=== PATIENT | female | born 1985 | race Caucasian/White ===

== ENCOUNTER 2018-02-12 20:36 | Outpatient (CLI) | payer OTHER, MEDICAID ==
[2018-02-12 21:25] LABS: APPEARANCE,URINE TURBID; BILIRUBIN,URINE NEGATIVE (NEGATIVE); COLOR,URINE AMBER; GLUCOSE, URINE NEGATIVE (NEGATIVE); KETONES,URINE NEGATIVE (NEGATIVE); LEUKOCYTE ESTERASE,URINE LARGE (NEGATIVE); NITRITE,URINE NEGATIVE (NEGATIVE); PROTEIN,URINE 30 mg/dL (NEGATIVE); URINE SPECIFIC GRAVITY 1.028; UROBILINOGEN,URINE NEGATIVE mg/dL (<2.0)
[2018-02-12 21:34] LABS: URINE AMPHETAMINES SCREEN NEGATIVE; URINE BARBITURATES SCREEN NEGATIVE; URINE BENZODIAZEPINES SCREEN NEGATIVE; URINE COCAINE SCREEN NEGATIVE; URINE MARIJUANA (THC) SCREEN NEGATIVE; URINE METHADONE SCREEN NEGATIVE; URINE PHENCYCLIDINE SCREEN NEGATIVE
== END 2018-02-12 22:27 | disposition home or self-care (01) ==
LOC: LC 20:36
PROVIDERS: ATTEND Obstetrics & Gynecology
PROC: 4A1HXCZ Monitoring of Products of Conception, Cardiac Rate, External Approach (ICD-10-PCS; principal; 2018-02-12)
DX: O47.1 False labor at or after 37 completed weeks of gestation (principal); Z3A.39 39 weeks gestation of pregnancy
CPT/HCPCS: 59025; 80307; 81005

== ENCOUNTER 2018-02-19 21:58 | Inpatient (IN) | payer OTHER, MEDICAID ==
[2018-02-19] MEDS ORDERED: RINGERS SOLUTION,LACTATED 300 ML IV ONE (22:02)
[2018-02-19] MEDS ORDERED: RINGERS SOLUTION,LACTATED 1,000 ML IV ONE (22:02)
[2018-02-19] MEDS ORDERED: DINOPROSTONE 10 MG VAGINAL INSERT.SR PV PRN (22:02)
[2018-02-19] MEDS ORDERED: RINGERS SOLUTION,LACTATED 1,000 ML IV PRN (22:02)
[2018-02-19] MEDS ORDERED: DINOPROSTONE 10 MG VAGINAL INSERT.SR ONE (22:48)
[2018-02-19] MEDS: RINGERS SOLUTION,LACTATED 1,000 ML IV PRN (22:50)
[2018-02-19 22:51] LABS: ABSOLUTE EOSINOPHILS # (AUTO) 0.2 10^3/uL (0.0-0.6); ABSOLUTE MONOCYTES (AUTO) 0.9 10^3/uL (0.1-1.4); ABSOLUTE NEUT (AUTO) 6.2 10^3/uL (1.7-8.2); BASOPHILS % (AUTO) 0.3 % (0-2); HEMATOCRIT 31.6 % (36.0-47.0); HEMOGLOBIN 10.9 g/dL (12.0-15.5); LYMPHOCYTES % (AUTO) 21.6 % (13-45); MEAN CORPUSCULAR HEMOGLOBIN 27.7 pg (27.0-33.4); MEAN CORPUSCULAR HGB CONC 34.6 g/dL (32.0-36.0); MEAN CORPUSCULAR VOLUME 80 fl (80-97); MONOCYTES % (AUTO) 9.7 % (3-13); PLATELET COUNT 224 10^3/uL (150-450); RED BLOOD COUNT 3.94 10^6/uL (3.72-5.28); RED CELL DISTRIBUTION WIDTH 14.9 % (11.5-14.0); SEGMENTED NEUTROPHILS % (AUTO) 66.4 % (42-78); TOTAL CELLS COUNTED % (AUTO) 100 %; WHITE BLOOD COUNT 9.4 10^3/uL (4.0-10.5)
[2018-02-20] MEDS ORDERED: ZOLPIDEM TARTRATE 5 MG TABLET ONE (00:40)
--- NOTE | 2018-02-20 06:43 | Admission Physical ---
Datetime Report Generated by CPN: 02/20/2018 06:42 CURRENT ADMISSION Chief Complaint: Scheduled Induction of Labor Indication for Induction: Polyhydramnios Admit Impression : Term, Intrauterine ; No Active Labor; Intact Membranes; Induction of Labor Admit Plan: Admit to Unit; Initiate Labor Induction Protocol ALLERGIES Medication Allergies: No Medication Allergies: No Known Allergies (02/19/2018) Latex: No Latex Allergies Food Allergies: N/A Environmental Allergies: N/A OBSTETRICAL HISTORY EDC: 02/24/2018 00:00 : 3 Para: 0 Term: 0 : 0 SAB: 0 IAB: 1 Ectopic: 1 Livin Cesareans: 0 VBACs: 0 Multiple Births: 0 Gestational Diabetes: No Rh Sensitization: No Incompetent Cervix: No JAISON: No Infertility: No ART Treatment: No Uterine Anomaly: No IUGR: No Hx Previous C/S: No Macrosomia: No Hx Loss/Stillborn: No PIH: No Hx : No Placenta Previa/Abruption: No Depression/PP Depression: No PTL/PROM: No Post Hemorrhage: No Current Procedures: Ultrasound Obstetrical History Comments: G1- EAB 2014 G2- ectopic 2017 G3- current SEE RECORDS Alcohol: No Marijuana : No Cocaine: No Other Illicit Drugs: No Cigarettes: Never Smoker. [id number] MEDICAL HISTORY Diabetes: No Blood Transfusion: No Pulmonary Disease (Asthma, TB): Yes Breast Disease: No Hypertension: No Lay Out Former Surgery: No Heart Disease: No Hosp/Surgery: Yes Autoimmune Disorder: No Anesthetic Complications: No Kidney Disease: No Abnormal Pap Smear: Yes Neuro/Epilepsy: No Psychiatric Disorders: No Other Medical Diseases: No Hepatitis/Liver Disease: No Significant Family History: No Varicosities/Phlebitis: No Trauma/Violence : No Thyroid Dysfunction: No Medical History Comments: DDD, appendectomy, pin in R leg, asthma INFECTIOUS HISTORY Gonorrhea: No Genital Herpes: No Chlamydia: No Tuberculosis: No Syphilis: No Hepatitis: No HIV/AIDS Exposure: No Rash or Viral Illness: No HPV: No PHYSICAL EXAM General: Normal HEENT: Normal Neurologic: Normal Thyroid: Deferred Heart: Normal Lungs: Normal Breast: Deferred Back: Normal Abdomen: Normal Genitourinary Exam: Normal Extremities: Normal DTRs: Normal Pelvic Type: Adequate Vital Signs: Reviewed VAGINAL EXAM Dilatation: 0 Effacement: 50 Station: -3 Contraction Comments: none MEMBRANES Membranes: Intact FETUS A EGA: 39.3 Monitoring: External US FHR- Baseline: 135 Variability: Moderate 6-25bpm Accelerations: 15X15 Decelerations: None FHR Category: Category I Presentation: Vertex Admit Comment: 33yo (h/o ectopic and EAB) at 39+3eg presented last evening for IOL due to polyhydramnios (persistent). Last MVP/SDP was 03/20. EFW 8#8oz. LGSIL pap smear - needs colpo pp. Pt with h/o asthma - sees pulmonology. Pt with escessive weight gain as well. Cervidil placed last evening. GBS negative. Anticipate . Pelvis unproven. PLANS FOR LABOR AND DELIVERY Labor and Delivery: None Pain Management: Epidural Feeding Preference: Breast Benefit of Breast Feed Discussed: Yes Circumcision: N/A INFORMED CONSENT Informed Consent Obtained: Vaginal Delivery; Induction of Labor; Risks, Benefits and Alternatives Discussed Signature: with User ID: [email or web address]
[2018-02-20 07:50] LABS: AMORPHOUS SEDIMENT,URINE 3+ /HPF; APPEARANCE,URINE TURBID; BILIRUBIN,URINE NEGATIVE (NEGATIVE); CALCIUM OXALATE CRYSTALS,URINE MODERATE /HPF; COLOR,URINE YELLOW; GLUCOSE, URINE 50 mg/dL (NEGATIVE); KETONES,URINE 20 mg/dL (NEGATIVE); LEUKOCYTE ESTERASE,URINE LARGE (NEGATIVE); NITRITE,URINE NEGATIVE (NEGATIVE); PROTEIN,URINE 30 mg/dL (NEGATIVE); URINE SPECIFIC GRAVITY 1.031
[2018-02-20 08:26] LABS: URINE AMPHETAMINES SCREEN NEGATIVE; URINE BARBITURATES SCREEN NEGATIVE; URINE BENZODIAZEPINES SCREEN NEGATIVE; URINE COCAINE SCREEN NEGATIVE; URINE MARIJUANA (THC) SCREEN NEGATIVE; URINE METHADONE SCREEN NEGATIVE; URINE PHENCYCLIDINE SCREEN NEGATIVE
[2018-02-20] MEDS ORDERED: OXYTOCIN/NORMAL SALINE 20 UNIT/1,000 ML RTUINJ IV PRN (12:15)
[2018-02-20] MEDS ORDERED: OXYTOCIN/NORMAL SALINE 20 UNIT/1,000 ML RTUINJ ONE ×2 (12:25→23:34)
[2018-02-20] MEDS ORDERED: PROMETHAZINE HCL INJ 25 MG/1 ML VIAL IV ONE (13:46)
[2018-02-20] MEDS ORDERED: NALBUPHINE HCL INJ 10 MG/1 ML AMPULE ONE (13:46)
[2018-02-20] MEDS ORDERED: NALBUPHINE HCL INJ 10 MG/1 ML AMPULE INJ ONE (13:46)
[2018-02-20] MEDS ORDERED: PROMETHAZINE HCL INJ 25 MG/1 ML VIAL ONE (13:46)
[2018-02-20] MEDS ORDERED: LIDOCAINE 1% INJ-PF (10 MG/ML) 30 ML SDV ONE (23:33)
[2018-02-20] MEDS ORDERED: MISOPROSTOL 0.2 MG TABLET ONE (23:33)
[2018-02-20] MEDS ORDERED: BUPIVACAINE HCL 0.25 % INJ/PF (2.5 MG/1 ML) 30 ML VIAL ONE (23:34)
[2018-02-20] MEDS ORDERED: FENTANYL/BUPIVACAINE/NS/PF 300 MCG/150 ML RTUINJ EPI ONE (23:34)
[2018-02-20] MEDS ORDERED: EPHEDRINE SULFATE INJ 50 MG/1 ML AMPULE ONE (23:34)
[2018-02-21] MEDS ORDERED: LIDOCAINE 1.5%/EPINEPHRINE INJ-PF 30 ML SDV ONE (00:31)
[2018-02-21] MEDS ORDERED: ACETAMINOPHEN 325 MG TABLET ONE ×2 (05:46→10:09)
--- NOTE | 2018-02-21 09:14 | L&D Progress Notes ---
PROGRESS NOTES Datetime Report Generated by CPN: 02/21/2018 09:13 PROGRESS NOTE Informed Consent Obtained: Vaginal Delivery; Induction of Labor; Risks, Benefits and Alternatives Discussed Comment: Having occasional late decelerations, moderate variability, repositioned, IV bolus,Pitocin off,, uc's q 2 1/2 min x 50-60 sec, does not feel uc's, comfortable with epidural, Dr. Fontanez on unit, aware of lates and lates resolved with intrauterine resuscitation Continue to monitorclosely VAGINAL EXAM Dilatation: 0 Effacement: 50 Station: -3 Contractions: none MEMBRANES Membranes: Intact FETUS A Presentation: Vertex SIGNATURE SIGNATURE: [id number] SIGNATURE: ,[id number];,[id number] SIGNATURE: ,[id number] Assignment: Silver Fontanez MD Signature: with User ID: [email or web address] : with User ID: [email or web address]
--- NOTE | 2018-02-21 10:04 | L&D Progress Notes ---
PROGRESS NOTES Datetime Report Generated by CPN: 02/21/2018 10:04 PROGRESS NOTE Impression: Reassuring Heart Rate Plan: Continue Present Management; Induction Informed Consent Obtained: Vaginal Delivery Vital Signs : Reviewed; Within Normal Limits Comment: Cat 1 strip, irregulsr UC's, will restart Pitocin, monitor closely FETUS A Monitoring: External US Decelerations: None FETUS C SIGNATURE: [id number];[id number];[id number] Assignment: Silver Fontanez MD Signature: with User ID: [email or web address] : with User ID: [email or web address]
[2018-02-21] MEDS ORDERED: CEFAZOLIN 1 GM/D5W RTU 2 GM/100 ML RTUPB IV ONE (10:09)
[2018-02-21] MEDS ORDERED: CITRIC ACID/SODIUM CITRATE ORAL SOLN 15 ML UDCUP ONE (10:09)
--- NOTE | 2018-02-21 10:11 | L&D Progress Notes ---
PROGRESS NOTES Datetime Report Generated by CPN: 02/21/2018 10:10 PROGRESS NOTE Comment: 99.2 temp, VE = closed, out of pelvis, vomiting, hold Pitocin, wait for Dr. Fontanez to evaluate, , uc's q 4 min, Cat 1 strip FETUS C SIGNATURE: [id number];[id number];[id number] Assignment: Silver Fontanez MD Signature: with User ID: [email or web address] : with User ID: [email or web address]
[2018-02-21] MEDS ORDERED: ONDANSETRON HCL INJ/PF 4 MG/2 ML SDV ONE (10:14)
[2018-02-21] MEDS ORDERED: OXYTOCIN 10 UNIT/ML VIAL ONE (10:22)
[2018-02-21] MEDS ORDERED: MIDAZOLAM 2 MG/2 ML INJ ONE (10:23)
[2018-02-21] MEDS ORDERED: EPHEDRINE SULFATE INJ 50 MG/1 ML AMPULE ONE (10:23)
[2018-02-21] MEDS ORDERED: LIDOCAINE 2% INJ-PF (20 MG/ML) 10 ML AMPUL ONE (10:23)
[2018-02-21] MEDS ORDERED: FENTANYL CITRATE INJ/PF 100 MCG/2 ML AMPUL ONE (10:24)
[2018-02-21] MEDS ORDERED: MORPHINE SULFATE 10 MG/ML INJ ONE (10:24)
[2018-02-21] MEDS ORDERED: ONDANSETRON HCL INJ/PF 4 MG/2 ML SDV IV ONE ×2 (10:45)
[2018-02-21] MEDS ORDERED: ACETAMINOPHEN 325 MG TABLET PO ONE (10:45)
[2018-02-21] MEDS ORDERED: MORPHINE SULFATE 10 MG/ML INJ IV PRN (11:09)
[2018-02-21] MEDS ORDERED: OXYCODONE-ACETAMINOPHEN 5-325 MG TABLET PO PRN ×2 (11:09)
[2018-02-21] MEDS ORDERED: DIPHENHYDRAMINE HCL 50 MG/ML VIAL IV PRN (11:09)
[2018-02-21] MEDS ORDERED: PROMETHAZINE HCL INJ 25 MG/1 ML VIAL IV PRN ×3 (11:09→11:22)
[2018-02-21] MEDS ORDERED: FENTANYL CITRATE INJ/PF 100 MCG/2 ML AMPUL IV PRN ×3 (11:09)
[2018-02-21] MEDS ORDERED: MEPERIDINE HCL/PF INJ 25 MG/1 ML DISP.SYRIN IV PRN (11:09)
[2018-02-21] MEDS ORDERED: DIPH/PERTUSS(ACELL)/TETANUS VAC/PF 0.5 ML SYR (>=10YO) IM PRN (11:22)
[2018-02-21] MEDS ORDERED: MEASLES,MUMPS&RUBELLA VACC/PF 0.5 ML VIAL SUBCUT PRN (11:22)
[2018-02-21] MEDS ORDERED: MORPHINE SULFATE 10 MG/ML INJ IM PRN (11:22)
[2018-02-21] MEDS ORDERED: OXYTOCIN/NORMAL SALINE 20 UNIT/1,000 ML RTUINJ IV PRN (11:22)
[2018-02-21] MEDS ORDERED: ACETAMINOPHEN 325 MG TABLET PO PRN (11:22)
[2018-02-21] MEDS ORDERED: OXYTOCIN/NORMAL SALINE 20 UNIT/1,000 ML RTUINJ ONE (11:25)
--- NOTE | 2018-02-21 11:25 | OPERATIVE REPORT E ---
Operative Report NAME: MATT MIXON : 1985 AGE: 33Y DATE OF SURGERY: 02/21/2018 ROOM: LR200 PREOPERATIVE DIAGNOSIS: IUP at term with failure to descend. POSTOPERATIVE DIAGNOSIS: IUP at term with failure to descend. PROCEDURE: Primary low-transverse C section, delivery of a viable female, 8 and 9 Apgars. SURGEON: Moe JACKSON M.D. ESTIMATED BLOOD LOSS: Less than 1000 mL. ANESTHESIA: Epidural TISSUE REMOVED OR ALTERED: Placenta. DESCRIPTION OF PROCEDURE: The patient was placed in a supine position, roll right side, prepped and draped in a sterile fashion. A Pfannenstiel incision was made down through the fascia. The fascia was sharply and bluntly divided. The rectus muscle was bluntly and sharply divided. Parietal peritoneum was entered with blunt dissection. Uterus nicked in midline, standard bilaterally. Infant was then delivered through the uterine and abdominal incision. Nose and mouth were suctioned with bulb syringe. Cord was clamped, infant was passed from table. Placenta was manually extracted. The uterus was closed in 2 layers using #1 Vicryl, first a running stitch and a second Limbert stitch imbricating the first layer. There were 2 areas of bleeding noted in the incision, controlled with [id number] sutures of #1 Vicryl. The fascia was then closed with 0-Vicryl and the skin was closed with subcutaneous absorbable oriana. Her urine remained clear throughout the procedure. She was taken to the recovery room in good condition. DICTATING PHYSICIAN: Moe JACKSON M.D. [id number] Y#: [id number] ID: [id number] JOB#: [id number] ACCT: [id number] cc:Moe JACKSON M.D. >
[2018-02-21] MEDS ORDERED: KETOROLAC TROMETHAMINE INJ/PF 30 MG/1 ML SDV ONE (11:50)
[2018-02-21] MEDS ORDERED: ACETAMINOPHEN 1,000 MG/100 ML RTUPB IV ONE ×2 (11:50→13:00)
[2018-02-21] MEDS: MORPHINE SULFATE 10 MG/ML INJ IV PRN ×2 (12:45→20:33)
[2018-02-21] MEDS: DOCUSATE SODIUM 100 MG CAPSULE PO SCH (17:28)
[2018-02-21] MEDS: KETOROLAC TROMETHAMINE INJ/PF 30 MG/1 ML SDV IV SCH (17:29)
[2018-02-21] MEDS: OXYCODONE-ACETAMINOPHEN 5-325 MG TABLET PO PRN ×2 (17:29→23:39)
[2018-02-21] MEDS: RINGERS SOLUTION,LACTATED 1,000 ML IV PRN (23:44)
[2018-02-22] MEDS: KETOROLAC TROMETHAMINE INJ/PF 30 MG/1 ML SDV IV SCH ×2 (01:14→09:14)
[2018-02-22] MEDS: OXYCODONE-ACETAMINOPHEN 5-325 MG TABLET PO PRN ×4 (04:14→21:30)
[2018-02-22 07:33] LABS: HEMATOCRIT 25.6 % (36.0-47.0); MEAN CORPUSCULAR HEMOGLOBIN 27.6 pg (27.0-33.4); MEAN CORPUSCULAR HGB CONC 34.4 g/dL (32.0-36.0); MEAN CORPUSCULAR VOLUME 80 fl (80-97); PLATELET COUNT 181 10^3/uL (150-450); RED BLOOD COUNT 3.19 10^6/uL (3.72-5.28); RED CELL DISTRIBUTION WIDTH 14.7 % (11.5-14.0); WHITE BLOOD COUNT 14.1 10^3/uL (4.0-10.5)
[2018-02-22 07:35] LABS: HEMOGLOBIN 8.8 g/dL (12.0-15.5)
[2018-02-22] MEDS: PRENATAL VITAMIN W DHA CAPSULE PO SCH (09:14)
[2018-02-22] MEDS: DOCUSATE SODIUM 100 MG CAPSULE PO SCH ×2 (09:14→18:11)
[2018-02-22] MEDS ORDERED: PNV PO SCH (10:00)
[2018-02-22] MEDS ORDERED: DSS PO SCH (10:00)
[2018-02-22] MEDS ORDERED: [UNRECOGNIZED DRUG - OTHER] PO SCH (10:00)
[2018-02-22] MEDS ORDERED: FOLATE PO SCH (10:00)
[2018-02-22] MEDS ORDERED: IRON PO SCH (10:00)
[2018-02-22] MEDS ORDERED: DHA PO SCH (10:00)
[2018-02-22] MEDS: ASCORBIC ACID 500 MG TABLET PO SCH ×2 (10:56→18:11)
[2018-02-22] MEDS: FERROUS SULFATE 325 MG TABLET PO SCH ×3 (10:56→18:11)
--- NOTE | 2018-02-22 11:35 | PDOC PROGRESS REPORT ---
Subjective-OB Progress Note for:: 02/22/18 Subjective: Pt doing well, sore but pain is controlled. She reports reg diet, voiding well and no heavy bleeding. Physical Exam (OB) Vital Signs: Temp Pulse Resp BP Pulse Ox 98.7 F 83 18 108/56 L 96 02/22/18 08:00 02/22/18 08:00 02/22/18 08:00 02/22/18 08:00 02/22/18 08:00 Intake & Output 02/21/18 02/22/18 02/23/18 06:59 06:59 06:59 Intake Total 1446 Output Total 1525 Balance -79 - Dressing Removed: No Incision: Dressing Closure Type: Sutures - Abdomen Description: Tender, Soft Hernia Present: No Fundal Description: Firm, Midline Fundal Height: u/u - u/2 Objective-Diagnostic Laboratory: 02/22/18 06:49 02/22/18 06:49 WBC 14.1 H RBC 3.19 L Hgb 8.8 L D Hct 25.6 L MCV 80 MCH 27.6 MCHC 34.4 RDW 14.7 H Plt Count 181 Assessment and Plan(PN) - Assessment and Plan (1) delivery delivered Is this a current diagnosis for this admission?: Yes - Time Spent with Patient Time with patient: Less than 15 minutes Medications reviewed and adjusted accordingly: Yes - Disposition Anticipated Discharge: Home Within: within 24 hours
[2018-02-22] MEDS: IBUPROFEN 800 MG TABLET PO SCH (17:19)
[2018-02-22] MEDS: AMPICILLIN SODIUM/SULBACTAM NA 3 GM in NORMAL SALINE 100 ML IV SCH (18:10)
[2018-02-23] MEDS: IBUPROFEN 800 MG TABLET PO SCH ×3 (01:39→18:13)
[2018-02-23] MEDS: AMPICILLIN SODIUM/SULBACTAM NA 3 GM in NORMAL SALINE 100 ML IV SCH ×3 (01:40→18:14)
[2018-02-23] MEDS: OXYCODONE-ACETAMINOPHEN 5-325 MG TABLET PO PRN ×3 (06:00→20:43)
--- NOTE | 2018-02-23 07:45 | Delivery Summary ---
Del Sum A-C Datetime Report Generated by CPN: 02/23/2018 07:45 DELIVERY PERSONNEL DELIVERY PERSONNEL: [id number] Delivery Doctor:: Silver Fontanez MD Anesthesiologist:: Shannon Banuelos MD TICK INSPECTOR:: Na Lewis TICK INSPECTOR Labor and Delivery Nurse:: Elly Cano RN Oil Dipper:: Elly Cano RN Neonatal Nurse Practitioner:: PHYLLIS Arevalo Nursery Nurse:: Joann Thomas RN Guest Attendant/RISK MGR: ST Jennifer Guest Attendant/RISK MGR: Ijeoma MATERNAL INFORMATION Delivery Anesthesia: Epidural Meds After Delivery Comment: See Anesthesia record Maternal Complications: None LABOR SUMMARY EDC: 02/24/2018 00:00 No. Babies in Womb: 1 Attempted: No Labor Anesthesia: Epidural LABOR INFORMATION Reason for Induction: Polyhydramnios; Other Reason for Induction- Other: Polyhydramnious Cervical Ripening Agents: Cervidil Oxytocin: Induction Group B Beta Strep: negative Steroids Given: None Reason Steroids Not Administered: Not Applicable MEMBRANES Membranes Rupture Method: Artificial Rupture of Membranes: 02/20/2018 22:21 Length of Rupture (hr): 12.55 Amniotic Fluid Color: Clear Amniotic Fluid Amount: Moderate Amniotic Fluid Odor: Normal STAGES OF LABOR Stage 3 hr: 0 Stage 3 min: 1 VAGINAL DELIVERY Episiotomy: None Laceration #1: None Laceration Extension #1: N/A Sponge Count Correct: N/A CSECTION DELIVERY Primary Indication: Arrest of Descent CSection Urgency: Non-Scheduled CSection Incidence: Primary Labor: Labor CSection Incision: Lower Uterine Transverse BABY A INFORMATION Infant Delivery Date/Time: 02/21/2018 10:54 Method of Delivery: Born in Route : No : N/A Forceps: N/A Vacuum Extraction: N/A Shoulder Dystocia : No PRESENTATION/POSITION BABY A Presentation: Cephalic Cephalic Presentation: Vertex Vertex Position: n/a Breech Presentation: N/A PLACENTA INFORMATION BABY A Placenta Delivery Time : 02/21/2018 10:55 Placenta Method of Delivery: Expressed Placenta Status: Delivered SCORES BABY A Heart Rate 1 min: >100 bpm Resp Effort 1 min: Good Cry Reflex Irritability 1 min: Cough or Sneeze or Pulls Away Muscle Tone 1 min: Active Motion Color 1 min: Blue/Pale Resuscitation Effort 1 min: Tactile Stimulation SCORE 1 MIN: 8 Heart Rate 5 min: >100 bpm Resp Effort 5 min: Good Cry Reflex Irritability 5 min: Cough or Sneeze or Pulls Away Muscle Tone 5 min: Active Motion Color 5 min: Body [place], Extremities Blue Resuscitation Effort 5 min: Tactile Stimulation SCORE 5 MIN: 9 INFANT INFORMATION BABY A Gestational Age at Delivery: 39.4 Gestational Status: Full Term- 39- 40.6 Weeks Outcome : Liveborn Condition : Stable Sex: Female IDENTIFICATION BABY A Verification Date/Time: 02/21/2018 11:00 ID Band Number: [id number] Mother's Name Verified: Yes Infant CORD INFORMATION BABY A No. Cord Vessels: 3 Nuchal Cord : N/A Cord Blood Taken: Yes-For Eval (Mom's Blood Type - or O+) ASSESSMENT BABY A Complications: None Physical Findings at Delivery: Within Normal Limits Infant Respirations: Appears Normal Skin to Skin: Yes Transferred To: Nursery BABY B INFORMATION : N/A SIGNATURES Signature: with User ID: [email or web address]
--- NOTE | 2018-02-23 10:08 | PDOC PROGRESS REPORT ---
Subjective-OB Progress Note for:: 02/23/18 Subjective: states she is feeling better, reports well, pain controlled with current meds, +passing gas, bleeding slowing. denies needs. discussed cont. abx until afebrile x 24 hours, pt agrees with plan Physical Exam (OB) Vital Signs: Temp Pulse Resp BP Pulse Ox 98.4 F 72 16 100/54 L 97 02/23/18 08:22 02/23/18 08:22 02/23/18 08:22 02/23/18 08:22 02/23/18 08:22 Intake & Output 02/22/18 02/23/18 02/24/18 06:59 06:59 06:59 Intake Total 1446 1050 Output Total 1525 Balance -79 1050 - Incision: Open - no s/s infection, Well Approximated Closure Type: Surgical Glue - Abdomen Description: Tender, Soft, Round Hernia Present: No Fundal Description: Firm, Midline Fundal Height: u/u - u/2 - Extremities Lower extremities: Audrey's sign - neg Ankle: Normal, Nontender Objective-Diagnostic Laboratory: 02/22/18 06:49 Assessment and Plan(PN) - Assessment and Plan (1) Fever Qualifiers: Fever type: fever of unknown origin following delivery Qualified Code(s): O86.4 - Pyrexia of unknown origin following delivery Is this a current diagnosis for this admission?: Yes (2) delivery delivered Is this a current diagnosis for this admission?: Yes - Time Spent with Patient Time with patient: Less than 15 minutes Medications reviewed and adjusted accordingly: Yes - Disposition Anticipated Discharge: Home Within: within 24 hours
[2018-02-23] MEDS: FERROUS SULFATE 325 MG TABLET PO SCH ×3 (10:27→18:13)
[2018-02-23] MEDS: ASCORBIC ACID 500 MG TABLET PO SCH ×2 (10:27→18:13)
[2018-02-23] MEDS: PRENATAL VITAMIN W DHA CAPSULE PO SCH (10:27)
[2018-02-23] MEDS: DOCUSATE SODIUM 100 MG CAPSULE PO SCH ×2 (10:28→18:13)
[2018-02-23] MEDS: SIMETHICONE 80 MG TAB.CHEW PO PRN ×2 (13:47→20:46)
[2018-02-23] MEDS ORDERED: ALBUTEROL SULFATE HFA (90 MCG/PUFF) 200 PUFF/8.5 GM MDI IH PRN (21:00)
[2018-02-24] MEDS: AMPICILLIN SODIUM/SULBACTAM NA 3 GM in NORMAL SALINE 100 ML IV SCH ×2 (01:10→11:02)
[2018-02-24] MEDS: IBUPROFEN 800 MG TABLET PO SCH ×2 (01:11→11:00)
[2018-02-24] MEDS: OXYCODONE-ACETAMINOPHEN 5-325 MG TABLET PO PRN ×2 (05:54→11:01)
[2018-02-24 06:06] LABS: ABSOLUTE EOSINOPHILS # (AUTO) 0.3 10^3/uL (0.0-0.6); ABSOLUTE LYMPHOCYTES (AUTO) 1.8 10^3/uL (0.5-4.7); ABSOLUTE NEUT (AUTO) 4.9 10^3/uL (1.7-8.2); BASOPHILS % (AUTO) 0.5 % (0-2); EOSINOPHILS % (AUTO) 3.7 % (0-6); HEMATOCRIT 26.4 % (36.0-47.0); LYMPHOCYTES % (AUTO) 22.5 % (13-45); MEAN CORPUSCULAR HEMOGLOBIN 27.4 pg (27.0-33.4); MEAN CORPUSCULAR HGB CONC 34.1 g/dL (32.0-36.0); MEAN CORPUSCULAR VOLUME 80 fl (80-97); PLATELET COUNT 241 10^3/uL (150-450); RED BLOOD COUNT 3.28 10^6/uL (3.72-5.28); RED CELL DISTRIBUTION WIDTH 14.9 % (11.5-14.0); SEGMENTED NEUTROPHILS % (AUTO) 61.3 % (42-78); TOTAL CELLS COUNTED % (AUTO) 100 %
--- NOTE | 2018-02-24 09:51 | PDOC DISCHARGE SUMMARY ---
Final Diagnosis Discharge Date: 02/24/18 - Final Diagnosis (1) delivery delivered Is this a current diagnosis for this admission?: Yes Discharge Data - Discharge Medication Home Medications: Albuterol Sulfate [Proair HFA] 2 inh IN Q4H PRN 02/12/18 Budesonide/Formoterol Fumarate [Symbicort 160-4.5 Mcg Inhaler] 2 inh IN DAILY Pnv 102/Iron/Folate 1/Dss/Dha [Vitafol Fe+ Docusate Combo Pck] 1 tab PO DAILY Reason(s) for Admission: Induction of Labor, Obstetric Complications Procedures: NST, Management of Obstetric Complications Intrapartum Procedure(s): : Low Cervical, Transverse Intrapartum Procedure Note: Failure to Descend - Diagnosis Test Laboratory: Temp Pulse Resp BP Pulse Ox 98.4 F 70 18 129/73 H 100 02/24/18 07:35 02/24/18 07:35 02/24/18 07:35 02/24/18 07:35 02/24/18 07:35 02/19/18 02/19/18 02/22/18 22:05 22:39 06:49 RBC 3.94 3.19 L Hgb 10.9 L 8.8 L D Hct 31.6 L 25.6 L Urine Opiates Screen NEGATIVE 02/24/18 05:40 RBC 3.28 L Hgb 9.0 L Hct 26.4 L Urine Opiates Screen - Discharge information/Instructions Discharge Activity: Balance Activity w/Rest, No Lifting Over 10 Pounds, No Lifting/Push/Pulling, Pelvic Rest, No tub bath Discharge Diet: Regular Disposition: HOME, SELF-CARE Follow up with: [facility] in: 1, Weeks
[2018-02-24] MEDS ORDERED: BUDESONIDE/FORMOTEROL 160-4.5 MCG 60 PUFF/6 GM MDI IH SCH (10:00)
[2018-02-24] MEDS: PRENATAL VITAMIN W DHA CAPSULE PO SCH (10:59)
[2018-02-24] MEDS: DOCUSATE SODIUM 100 MG CAPSULE PO SCH (10:59)
[2018-02-24] MEDS: ASCORBIC ACID 500 MG TABLET PO SCH (10:59)
[2018-02-24] MEDS: FERROUS SULFATE 325 MG TABLET PO SCH ×2 (11:00→14:03)
[2018-02-24 11:36] VITALS: BP 116/61
== END 2018-02-24 15:43 | disposition home or self-care (01) | DRG 765 ==
LOC: LR 21:58 → 2N 02-21 12:35
PROVIDERS: ADMIT Obstetrics & Gynecology Gynecology; ATTEND Obstetrics & Gynecology Gynecology
PROC: 4A1HXCZ Monitoring of Products of Conception, Cardiac Rate, External Approach (ICD-10-PCS; 2018-02-19)
PROC: 10D00Z1 Extraction of Products of Conception, Low, Open Approach (ICD-10-PCS; principal; 2018-02-21)
DX: O62.1 Secondary uterine inertia (principal); O86.4 Pyrexia of unknown origin following delivery; O40.3XX0 Polyhydramnios, third trimester, not applicable or unspecified; O99.52 Diseases of the respiratory system complicating childbirth; J45.909 Unspecified asthma, uncomplicated; O26.03 Excessive weight gain in pregnancy, third trimester; O76 Abnormality in fetal heart rate and rhythm complicating labor and delivery; Z3A.39 39 weeks gestation of pregnancy; Z37.0 Single live birth
CPT/HCPCS: 1961; 36415; 80307; 81001; 85025; 85027; 86592; 86850; 86900; 86901; 94799; J0131; J0295; J0690; J1885; J2250; J2270; J2300; J2405; J2550; J2590; J3010; J3490; J7120

== ENCOUNTER 2018-02-26 20:54 | Outpatient (CLI) | payer OTHER, MEDICAID ==
[2018-02-26 22:19] LABS: APPEARANCE,URINE CLEAR; BILIRUBIN,URINE NEGATIVE (NEGATIVE); COLOR,URINE STRAW; GLUCOSE, URINE NEGATIVE (NEGATIVE); KETONES,URINE NEGATIVE (NEGATIVE); LEUKOCYTE ESTERASE,URINE NEGATIVE (NEGATIVE); NITRITE,URINE NEGATIVE (NEGATIVE); PROTEIN,URINE NEGATIVE (NEGATIVE); URINE SPECIFIC GRAVITY 1.006; UROBILINOGEN,URINE NEGATIVE mg/dL (<2.0)
[2018-02-26 22:32] LABS: ABSOLUTE EOSINOPHILS # (AUTO) 0.3 10^3/uL (0.0-0.6); ABSOLUTE MONOCYTES (AUTO) 0.7 10^3/uL (0.1-1.4); ABSOLUTE NEUT (AUTO) 7.6 10^3/uL (1.7-8.2); BASOPHILS % (AUTO) 0.4 % (0-2); EOSINOPHILS % (AUTO) 2.5 % (0-6); HEMATOCRIT 28.9 % (36.0-47.0); HEMOGLOBIN 9.8 g/dL (12.0-15.5); LYMPHOCYTES % (AUTO) 18.6 % (13-45); MEAN CORPUSCULAR HGB CONC 33.7 g/dL (32.0-36.0); MEAN CORPUSCULAR VOLUME 80 fl (80-97); MONOCYTES % (AUTO) 6.5 % (3-13); PLATELET COUNT 356 10^3/uL (150-450); RED BLOOD COUNT 3.61 10^6/uL (3.72-5.28); RED CELL DISTRIBUTION WIDTH 14.9 % (11.5-14.0); TOTAL CELLS COUNTED % (AUTO) 100 %; WHITE BLOOD COUNT 10.6 10^3/uL (4.0-10.5)
[2018-02-26 22:41] LABS: ALANINE AMINOTRANSFERASE 42 U/L (9-52); ALKALINE PHOSPHATASE 211 U/L (38-126); ANION GAP 8 (5-19); ASPARTATE AMINO TRANSFERASE 36 U/L (14-36); BILIRUBIN,DIRECT 0.4 mg/dL (0.0-0.4); BILIRUBIN,TOTAL 0.5 mg/dL (0.2-1.3); BLOOD UREA NITROGEN 15 mg/dL (7-20); CALCIUM 8.8 mg/dL (8.4-10.2); CARBON DIOXIDE 29 mmol/L (22-30); CHLORIDE 104 mmol/L (98-107); GLUCOSE 75 mg/dL (75-110); POTASSIUM 4.6 mmol/L (3.6-5.0); SODIUM 140.6 mmol/L (137-145); TOTAL PROTEIN 5.8 g/dL (6.3-8.2); URIC ACID 6.3 mg/dL (2.5-6.2)
[2018-02-26 23:08] LABS: UR PRO/CREAT RATIO RESULT 0.5 mg/mg (0.0-0.2); URINE CREATININE 22.7 mg/dL (16-327); URINE PROTEIN 11.1 mg/dL (<12)
[2018-02-26] MEDS ORDERED: BISACODYL 10 MG SUPP.RECT PR ONE ×2 (23:13→23:15)
== END 2018-02-27 00:17 | disposition home or self-care (01) ==
LOC: EDSTATUS 21:22 → LC 21:24
PROVIDERS: ATTEND Obstetrics & Gynecology Gynecology
DX: O90.89 Other complications of the puerperium, not elsewhere classified (principal); K59.00 Constipation, unspecified
CPT/HCPCS: 36415; 80053; 81001; 82570; 83615; 84156; 84550; 85025

== ENCOUNTER 2018-07-21 14:52 | Emergency (ER) | payer MEDICAID, OTHER ==
[2018-07-21 15:10] VITALS: BP 121/62
[2018-07-21] MEDS ORDERED: CEFTRIAXONE INJ 1000 MG VIAL IM ONE (15:24)
[2018-07-21] MEDS ORDERED: LIDOCAINE 1% INJ-PF (10 MG/ML) 30 ML SDV INJ ONE (15:24)
[2018-07-21] MEDS ORDERED: BUPIVACAINE HCL 0.5 % INJ/PF 30 ML SDV INJ ONE (15:24)
[2018-07-21] MEDS ORDERED: IBUPROFEN 800 MG TABLET PO ONE (15:25)
--- NOTE | 2018-07-21 15:31 | ER Document Report ---
HPI - HPI Patient complains to provider of: Finger infection Time Seen by Provider: 07/21/18 15:12 Onset: Other - 2 days Onset/Duration: Worse Quality of pain: Achy Pain Level: 5 Context: Patient states that she received a manicure about a month ago and had some general soreness to the right third finger. Patient states that over the past 2 days the area has become tender red and swollen. Patient did see her primary doctor for this recently and was placed on Augmentin. Patient denies any improvement of her symptoms. Patient states she has had about 3 doses of the antibiotic. Associated Symptoms: denies: Fever, Nausea Exacerbated by: Movement Relieved by: Denies Similar symptoms previously: No Recently seen / treated by doctor: Yes - ROS ROS below otherwise negative: Yes Systems Reviewed and Negative: Yes All other systems reviewed and negative - CONSTITUTIONAL Constitutional: DENIES: Fever, Chills - MUSCULOSKELETAL Musculoskeletal: REPORTS: Extremity pain - right middle finger, Swelling - DERM Skin Color: Erythema Past Medical History - General Information source: Patient - Social History Smoking Status: Current Every Day Smoker Frequency of alcohol use: None Drug Abuse: None Occupation: Teaching Family History: Reviewed & Not Pertinent Patient has suicidal ideation: No Patient has homicidal ideation: No Pulmonary Medical History: Reports: Hx Asthma Renal/ Medical History: Denies: Hx Peritoneal Dialysis Past Surgical History: Reports: Hx Appendectomy, Hx Section, Hx Orthopedic Surgery - right leg Vertical Provider Document - CONSTITUTIONAL Agree With Documented VS: Yes Exam Limitations: No Limitations General Appearance: WD/WN, No Apparent Distress - INFECTION CONTROL TRAVEL OUTSIDE OF THE [place] IN LAST 30 DAYS: No - HEENT HEENT: Atraumatic, Normocephalic - NECK Neck: Normal Inspection - RESPIRATORY Respiratory: No Respiratory Distress - CARDIOVASCULAR Pulses: Normal: Radial - BACK Back: Normal Inspection - MUSCULOSKELETAL/EXTREMETIES Musculoskeletal/Extremeties: MAEW - NEURO Level of Consciousness: Awake, Alert, Appropriate Motor/Sensory: No Motor Deficit - DERM Integumentary: Warm, Dry Notes: Patient with paronychia involving the nail margin of the right third finger. Patient does have some subtle swelling to the palmar surface, no fluctuance Course - Re-evaluation Re-evalutation: 07/21/18 15:56 Dr. Hopson to bedside for examination. After digital block was performed Dr. Hopson used an 18-gauge needle for incision and drainage of paronychia, moderate amount of purulent drainage removed that was then cultured. - Vital Signs Vital signs: Temp Pulse Resp BP Pulse Ox 99.0 F 72 14 121/62 98 07/21/18 15:09 07/21/18 15:09 07/21/18 15:09 07/21/18 15:09 07/21/18 15:09 Procedures - Incision and Drainage Right Finger 3rd digit Type: Simple Anesthetic type: 0.5% Bupivacaine I&D procedure: Shurclens applied Incision Method: Incision made with needle Discharge - Discharge Clinical Impression: Paronychia, Encounter for incision and drainage procedure Condition: Stable Disposition: HOME, SELF-CARE Instructions: Augmentin ([facility]), Oral Narcotic Medication ([facility]), Paronychia ([facility]) , Rocephin ([facility]) Additional Instructions: Return immediately for any new or worsening symptoms Followup with your primary care provider, call tomorrow to make a followup appointment Continue to take your antibiotic as previously prescribed Prescriptions: Hydrocodone/Acetaminophen [Forgan 5-325 mg Tablet] 1 tab PO Q6 PRN #8 tablet PRN Reason: Ibuprofen [Motrin 600 Mg Tablet] 600 mg PO Q6H PRN #20 tablet PRN Reason: for pain Referrals: ROYER MORA DO [ACTIVE STAFF] - Follow up as needed
== END 2018-07-21 16:15 | disposition home or self-care (01) ==
LOC: ER 14:52
PROC: 0H9QXZZ Drainage of Finger Nail, External Approach (ICD-10-PCS; principal; 2018-07-21)
DX: L03.011 Cellulitis of right finger (principal); M79.644 Pain in right finger(s); M79.89 Other specified soft tissue disorders; J45.909 Unspecified asthma, uncomplicated; F17.200 Nicotine dependence, unspecified, uncomplicated
CPT/HCPCS: 99283; 96372; 87070; 87205; 10060; J3490 ×3; J0696

== ENCOUNTER 2018-07-22 11:40 | Emergency (ER) | payer MEDICAID ==
[2018-07-22 11:48] VITALS: BP 115/76
--- NOTE | 2018-07-22 12:21 | ER Document Report ---
ED Hand/Wrist Injury - General Chief Complaint: Finger Injury Stated Complaint: RIGHT FINGER PAIN Time Seen by Provider: 07/22/18 12:03 Notes: Patient is right middle finger is completely numb since having a digital block of that finger here yesterday to drain the paronychium. She describes the procedure is having an injection made on each side of her finger. Reviewing her record shows that bupivacaine was used. Patient says she was having excruciating pain in that finger from the paronychia and before she had a digital block performed. Ever since then, the finger has been and remains numb. She says the swelling of the finger is the same, but she does not have the same redness and pain as before. No fever. Patient says she been having problems with that finger for about a month but it got significantly worse just a couple of days ago. She had seen a local doctor who gave her a shot of antibiotic and put her on Augmentin?. When seen here yesterday, she was also given an injection of Rocephin IM and to continue the antibiotic she had already. The procedure note describes purulent material being expressed after the paronychia was I indeed with an 18-gauge needle. Patient is right-hand dominant. TRAVEL OUTSIDE OF THE [place] IN LAST 30 DAYS: No - Related Data Allergies/Adverse Reactions: No Known Allergies Allergy (Verified 07/22/18 11:41) Past Medical History - Social History Smoking Status: Never Smoker Chew tobacco use (# tins/day): No Drug Abuse: None Family History: Reviewed & Not Pertinent Patient has suicidal ideation: No Patient has homicidal ideation: No Pulmonary Medical History: Reports: Hx Asthma Past Surgical History: Reports: Hx Appendectomy, Hx Section, Hx Orthopedic Surgery - right leg Review of Systems - Review of Systems Notes: CONSTITUTIONAL : Denies fever. CARDIOVASCULAR: Denies chest pain. RESPIRATORY: Denies cough, chest congestion, or shortness of breath. GASTROINTESTINAL: Denies abdominal pain or nausea, vomiting, or diarrhea. GENITOURINARY: Denies difficulty or painful urinating, urinary frequency, blood in urine. Physical Exam - Vital signs Vitals: Temp Pulse Resp BP Pulse Ox 98.7 F 67 18 115/76 98 07/22/18 11:44 07/22/18 11:44 07/22/18 11:44 07/22/18 11:44 07/22/18 11:44 Interpretation: Normal Notes: PHYSICAL EXAMINATION: GENERAL: Well-appearing, no acute distress. HEAD: Atraumatic, normocephalic. NECK: Normal range of motion, supple. LUNGS: Breath sounds clear and equal bilaterally. HEART: Regular rate and rhythm without murmurs heard. ABDOMEN: Soft, nontender. No guarding or rebound or masses felt. Extremities: Right middle finger has good color and good circulation with excellent capillary refill. The color of the finger is pink and its warm like all the other fingers on her hand. There is some slight puffiness around the proximal nail where the patient's paronychia was likely located. I do not see any collection of pus there now and I do not feel any fluctuance there now. Patient has full range of motion of the finger just says she has no sensation in it. Course - Re-evaluation Re-evalutation: 07/22/18 20:[address] Mora, who said it would be unusual for both digital nerves to be cut injecting the local anesthetic. He advised continued observation and if there is no improvement in the next couple of days, he will follow her up in the office. - Vital Signs Vital signs: Temp Pulse Resp BP Pulse Ox 98.7 F 67 18 115/76 98 07/22/18 11:44 07/22/18 11:44 07/22/18 11:44 07/22/18 11:44 07/22/18 11:44 Discharge - Discharge Clinical Impression: Numbness of finger, Paronychia Condition: Stable Disposition: HOME, SELF-CARE Additional Instructions: Numbness of finger The numbness in your finger may be due to the medication that was injected in your finger, as it is a somewhat longer acting local anesthetic, bupivacaine. The other possibility is that the injection might have gotten into the digital nerves themselves which can take a few days or even a week or more for the numbness to wear off. At this time, there is no evidence of any problems with circulation in your hand and fingers. All of your digits are warm and pink and have excellent capillary refill. I spoke with our hand specialist, Dr. Leighton Mora, who advised observation to see if the sensation does not return in the next few days. If there is still complete numbness of the finger in 2-3 days, call his office for a follow-up appointment. I provided his contact information elsewhere in these discharge instructions. Return if your finger starts to swell worse or comes excruciatingly painful again, or develops reoccurrence of pus in the location. Referrals: LEIGHTON MORA, DO [ACTIVE STAFF] - Follow up as needed
== END 2018-07-22 12:17 | disposition home or self-care (01) ==
LOC: ER 11:40
DX: L03.011 Cellulitis of right finger (principal); R20.0 Anesthesia of skin
CPT/HCPCS: 99283

== ENCOUNTER 2019-05-04 15:32 | Emergency (ER) | payer MEDICAID ==
--- NOTE | 2019-05-04 15:56 | ER Document Report ---
ED Medical Screen (RME) - General Chief Complaint: Abdominal Pain Stated Complaint: FATIGUE Time Seen by Provider: 05/04/19 15:51 Mode of Arrival: Ambulatory Information source: Patient Notes: Patient presents emergency department with complaints of congestion for 1 week. She also complains of fatigue and left-sided pain for 2 days. Patient denies fever vomiting diarrhea. Denies pain with void. Reports history of ectopic . Reports she is sexually active without control and thought maybe she was having an ectopic again. I have greeted and performed a rapid initial assessment of this patient. A comprehensive ED assessment and evaluation of the patient, analysis of test results and completion of the medical decision making process will be conducted by additional ED providers. Dictation of this chart was performed using voice recognition software; therefore, there may be some unintended grammatical errors. TRAVEL OUTSIDE OF THE [place] IN LAST 30 DAYS: No - Related Data Allergies/Adverse Reactions: No Known Allergies Allergy (Verified 05/04/19 15:35) Past Medical History Pulmonary Medical History: Reports: Hx Asthma Renal/ Medical History: Denies: Hx Peritoneal Dialysis Past Surgical History: Reports: Hx Appendectomy, Hx Section, Hx Orthopedic Surgery - right leg Physical Exam - Vital signs Vitals: Temp Pulse Resp BP Pulse Ox 98.6 F 73 16 126/78 H 99 05/04/19 15:46 05/04/19 15:46 05/04/19 15:46 05/04/19 15:46 05/04/19 15:46 Course - Vital Signs Vital signs: Temp Pulse Resp BP Pulse Ox 98.6 F 73 16 126/78 H 99 05/04/19 15:46 05/04/19 15:46 05/04/19 15:46 05/04/19 15:46 05/04/19 15:46
[2019-05-04 16:44] LABS: ABSOLUTE BASOPHILS # (AUTO) 0.1 10^3/uL (0.0-0.2); ABSOLUTE EOSINOPHILS # (AUTO) 0.3 10^3/uL (0.0-0.6); ABSOLUTE LYMPHOCYTES (AUTO) 2.3 10^3/uL (0.5-4.7); ABSOLUTE MONOCYTES (AUTO) 0.5 10^3/uL (0.1-1.4); ABSOLUTE NEUT (AUTO) 5.2 10^3/uL (1.7-8.2); EOSINOPHILS % (AUTO) 3.3 % (0-6); HEMATOCRIT 41.7 % (36.0-47.0); HEMOGLOBIN 14.1 g/dL (12.0-15.5); LYMPHOCYTES % (AUTO) 27.5 % (13-45); MEAN CORPUSCULAR HEMOGLOBIN 28.1 pg (27.0-33.4); MEAN CORPUSCULAR HGB CONC 33.8 g/dL (32.0-36.0); MEAN CORPUSCULAR VOLUME 83 fl (80-97); MONOCYTES % (AUTO) 6.1 % (3-13); PLATELET COUNT 310 10^3/uL (150-450); RED BLOOD COUNT 5.01 10^6/uL (3.72-5.28); RED CELL DISTRIBUTION WIDTH 13.4 % (11.5-14.0); SEGMENTED NEUTROPHILS % (AUTO) 62.1 % (42-78); TOTAL CELLS COUNTED % (AUTO) 100 %; WHITE BLOOD COUNT 8.4 10^3/uL (4.0-10.5)
[2019-05-04 16:50] LABS: APPEARANCE,URINE SLIGHTLY-CLOUDY; BILIRUBIN,URINE NEGATIVE (NEGATIVE); COLOR,URINE AMBER; GLUCOSE, URINE NEGATIVE (NEGATIVE); KETONES,URINE TRACE mg/dL (NEGATIVE); LEUKOCYTE ESTERASE,URINE TRACE (NEGATIVE); NITRITE,URINE NEGATIVE (NEGATIVE); PROTEIN,URINE NEGATIVE (NEGATIVE); URINE SPECIFIC GRAVITY 1.025
[2019-05-04 17:06] LABS: ALBUMIN 4.3 g/dL (3.5-5.0); ALKALINE PHOSPHATASE 54 U/L (38-126); ANION GAP 7 (5-19); ASPARTATE AMINO TRANSFERASE 20 U/L (14-36); BILIRUBIN,TOTAL 0.4 mg/dL (0.2-1.3); BLOOD UREA NITROGEN 9 mg/dL (7-20); CARBON DIOXIDE 29 mmol/L (22-30); CHLORIDE 103 mmol/L (98-107); GLUCOSE 77 mg/dL (75-110); POTASSIUM 4.2 mmol/L (3.6-5.0)
--- NOTE | 2019-05-04 17:17 | ER Document Report ---
ED General - General Chief Complaint: Abdominal Pain Stated Complaint: FATIGUE Time Seen by Provider: 05/04/19 15:51 Primary Care Provider: ALF LEDEZMA PA-C [Primary Care Provider] - Follow up in 1 week Mode of Arrival: Ambulatory TRAVEL OUTSIDE OF THE [place] IN LAST 30 DAYS: No - HPI Notes: 34 year old female to the ED with C/O fatigue, nasal congestion for the past week and left lower abdominal pain that began two days ago. States that she had a history of ectopic and thinks she might be . Denies vaginal bleeding, vaginal discharge, NVD. States that she has a history of ectopic . States that her child was sick with an URI last week. - Related Data Allergies/Adverse Reactions: No Known Allergies Allergy (Verified 05/04/19 15:35) Past Medical History - General Information source: Patient - Social History Smoking Status: Former Smoker Frequency of alcohol use: Occasional Drug Abuse: None Family History: Reviewed & Not Pertinent Patient has suicidal ideation: No Patient has homicidal ideation: No Pulmonary Medical History: Reports: Hx Asthma Renal/ Medical History: Denies: Hx Peritoneal Dialysis Past Surgical History: Reports: Hx Appendectomy, Hx Section, Hx Orthopedic Surgery - right leg Review of Systems - Review of Systems Constitutional: See HPI, Malaise. denies: Chills, Fever EENT: Nose congestion. denies: Ear pain, Throat pain Cardiovascular: denies: Chest pain, Palpitations, Orthopnea, Dyspnea, Syncope, Dizziness, Lightheaded Respiratory: denies: Cough, Short of breath Gastrointestinal: See HPI, Abdominal pain. denies: Diarrhea, Nausea, Vomiting Genitourinary: No symptoms reported Female Genitourinary: See HPI Skin: No symptoms reported Hematologic/Lymphatic: No symptoms reported Neurological/Psychological: No symptoms reported -: Yes All other systems reviewed and negative Physical Exam - Vital signs Vitals: Temp Pulse Resp BP Pulse Ox 98.6 F 73 16 126/78 H 99 05/04/19 15:46 05/04/19 15:46 05/04/19 15:46 05/04/19 15:46 05/04/19 15:46 Interpretation: Normal - General General appearance: Appears well, Alert In distress: None - HEENT Head: Normocephalic, Atraumatic Eyes: Normal Pupils: PERRL - Respiratory Respiratory status: No respiratory distress Chest status: Nontender Breath sounds: Normal Chest palpation: Normal - Cardiovascular Rhythm: Regular Heart sounds: Normal auscultation Murmur: No - Abdominal Inspection: Normal Distension: No distension Bowel sounds: Normal Tenderness: Tender Notes: + LLQ TTP. no TTP over the RLQ, RUQ epigastrium, or LUQ. There is no rebound or guarding. 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 No ovarian torsion 2. 2.4 and 1.9 cm left ovarian cysts, one of which is hemorrhagic and the other is irregular, suggesting recent partial rupture. No follow-up imaging is recommended. Reference: Radiology 2010 Apr;256(3):943-54 Impression: Left sided ovary cysts, nasal congestion, fatigue. Patient is feeling better. Will discharge home Will have her follow with [facility]. She agrees with the plan, URged to return if worse. - Vital Signs Vital signs: Temp Pulse Resp BP Pulse Ox 98.3 F 56 L 16 118/87 H 98 05/04/19 22:11 05/04/19 22:11 05/04/19 22:11 05/04/19 22:11 05/04/19 22:11 - Laboratory Result Diagrams: 05/04/19 16:10 05/04/19 16:10 Laboratory results interpreted by me: 05/04/19 16:10 Urine Ketones TRACE H Urine Urobilinogen 2.0 H Ur Leukocyte Esterase TRACE H Discharge - Discharge Clinical Impression: Left lower quadrant abdominal pain, Hemorrhage of left ovary, Nasal congestion, Fatigue Condition: Stable Disposition: HOME, SELF-CARE Instructions: Abdominal Pain ([facility]) Additional Instructions: PUSH FLUIDS. REST AT HOME. FOLLOW UP WITH YOUR OBGYN. RETURN IF WORSENING PAIN, FEVERS, INTRACTABLE VOMITING. YOU MAY ALSO APPLY WARM COMPRESSES. Prescriptions: Ketorolac Tromethamine [Toradol 10 mg Tablet] 10 mg PO Q8HP PRN #12 tablet PRN Reason: Referrals: ALF LEDEZMA PA-C [Primary Care Provider] - Follow up in 1 week
[2019-05-04] MEDS ORDERED: NORMAL SALINE 1000 ML 1,000 ML IV ONE (17:30)
--- NOTE | 2019-05-04 21:53 | RADIOLOGY REPORT (SQ) ---
EXAM DESCRIPTION: [facility]: US PELVIS TRANSVAGINAL CLINICAL HISTORY: 34 years Female left pelvic pain, eval torsion TECHNIQUE: Endovaginal pelvic ultrasound was performed. COMPARISON: None. FINDINGS: Uterus: 7.2 x 4.7 x 4 cm, with 7 mm endometrial stripe. There is a small 3 x 5 x 5 mm hypoechoic area. No discrete structures. Right ovary: 3.2 x 1.2 x 1.8 cm. Normal vascular flow on Doppler. Left ovary: 3.8 x 2.5 x 2.6 cm. Normal vascular flow on Doppler. There is a slightly irregular nearly anechoic cyst with minimal internal echoes 2.4 x 1.6 x 1.7 cm as well as a 1.9 x 1.7 x 1.8 cm cyst with internal echoes typical for hemorrhagic cyst. Neither of these demonstrate hyperemia on Doppler. No free fluid. IMPRESSION: 1. No ovarian torsion 2. 2.4 and 1.9 cm left ovarian cysts, one of which is hemorrhagic and the other is irregular, suggesting recent partial rupture. No follow-up imaging is recommended. Reference: Radiology 2010 Apr;256(3):943-54
[2019-05-04 22:15] VITALS: BP 118/87
== END 2019-05-04 22:15 | disposition home or self-care (01) ==
LOC: ER 15:32
DX: N83.202 Unspecified ovarian cyst, left side (principal); R10.32 Left lower quadrant pain; R53.81 Other malaise; R09.81 Nasal congestion; R53.83 Other fatigue; R10.9 Unspecified abdominal pain; Z87.891 Personal history of nicotine dependence; J45.909 Unspecified asthma, uncomplicated
CPT/HCPCS: 99284; 96360; 36415; 84702; 84443; 85025; 81025; 80053; 81001; 76830; 93976; J7030